=== PATIENT | female | born 1975 | race African-American/Black ===

== ENCOUNTER 2016-10-26 20:08 | Emergency (ER) | payer BC ==
[~2016-10-26] VITALS: Ht 170.2 cm; Wt 73.3 kg
[~2016-10-26 20:08] MED LIST: BETHANECHOL PR; DILTIAZE PR; DOCUSATE CALCI240 MG PO; ENDOCET 5-3251 EACH PO; FIBER THERAPY0.52 GM PO; IBUPROFEN800 MG PO; LIDOCREAM15 GM TP; METAMUCIL PACKE1 PKT PO; METAMUCIL0.52 GM PO; PRENA1 SOFTGEL1 EACH PO; SENNA8.6 M1 PO; XOLIDO118 ML TP
[2016-10-26 20:49] LABS: HEMATOCRIT 36.2 % (36.0-46.0); MCH 28.5 PG (29.0-34.0); MCHC 32.6 G/DL (30.0-36.0); MCV 87.4 FL (83-99); MEAN PLAT.VOLUME 8.5 uM^3 (9.5-12.4); PLATELET COUNT 286 K/uL (156-360); RBC DIS.WIDTH-CV 12.6 % (11.8-14.6); RBC DIS.WIDTH-SD 40.2 % (39-53); RED BLOOD COUNT 4.14 M/uL (3.80-5.20); WHITE BLOOD COUNT 7.4 K/uL (4.1-10.2)
[2016-10-26 21:00] LABS: CHLORIDE 107 mEq/L (99-109); POTASSIUM 3.9 mEq/L (3.7-5.4); SODIUM 140 mEq/L (136-147)
[2016-10-26 21:02] LABS: GLUCOSE 84 mg/dL (70-99)
[2016-10-26 21:03] LABS: ANION GAP 8 MEQ/L (2-14)
[2016-10-26 21:06] LABS: GFR ESTIMATE (CALCULATED) > 59 mL/min/; UREA NITROGEN (BUN) 10 mg/dL (9-23)
[2016-10-26 21:12] LABS: TROP-I INTERPRETATION NEGATIVE; TROPONIN-I < 0.01 ng/mL (0.0-0.30)
[2016-10-26 21:38] LABS: D-DIMER ELISA 0.19 mg/L FEU (< 0.57)
[2016-10-26] MEDS ORDERED: NAPROSYN500 MG PO (22:37)
[2016-10-26 22:50] VITALS: BP 100/69
== END 2016-10-26 22:54 | disposition home or self-care (01) ==
LOC: EME 20:08
DX: R07.89 Other chest pain (principal)
CPT/HCPCS: 71020; 80048; 84484; 85027; 85379; 93005; 99281; 99284